=== PATIENT | male | born 1960 | race Caucasian/White ===

== ENCOUNTER 2016-05-16 20:27 | Observation (INO) | payer OTHER ==
[~2016-05-16 20:27] MED LIST: ALDA2525 PO; ALDA50TA PO; BACT800T5 PO; CIAL5TAB PO; CLIN150 PO; HUMI20KI SQ; LISI-363 PO; ROBA750T3 PO; TAMS.4 PO; TEST200I13 IM; ZOCO40TA PO
[2016-05-16 20:29] VITALS: BP 154/93; PULSE 68; RESP 16; TEMP 97.8; O2SAT 98
[2016-05-16] MEDS ORDERED: LISI-515 PO (20:43)
[2016-05-16] MEDS ORDERED: TEST-55 (20:43)
[2016-05-16] MEDS ORDERED: TAMS0.4C4 PO (20:43)
[2016-05-16] MEDS ORDERED: SIMV80TA PO (20:43)
[2016-05-16] MEDS ORDERED: ACYC400T PO (20:43)
[2016-05-16] MEDS ORDERED: IBUP-988 PO (20:43)
[2016-05-16] MEDS ORDERED: HUMI40KI SQ (20:43)
[2016-05-16] MEDS ORDERED: METH750T PO (20:43)
[2016-05-16] MEDS ORDERED: HYDR25TA5 PO (20:43)
[2016-05-16] MEDS ORDERED: SILD20TA11 PO (20:43)
[2016-05-16] MEDS ORDERED: BENA25CA4 (20:43)
[2016-05-16] MEDS ORDERED: SODIUM CHLORIDE 0.9% FLUSH 5 ML FLUSH IVF PRN ×2 (20:45→22:45)
--- NOTE | 2016-05-16 20:55 | PD ---
HPI Chief Complaint: Neuro Symptoms/ Deficits Time Seen by Provider: 20:36 Travel History International Travel<30 days: No Contact w/Intl Traveler<30days: No Traveled to known affect area: No History of Present Illness HPI Patient is a 55-year-old male with history of hypertension, hyperlipidemia, hypoglycemia who presents to emergency room for evaluation of possible CVA. Patient presents to emergency room with his , reports that patient was last seen normal around 4:15 PM today. Patient's reports that when she arrived home around 5:30 PM today, patient appeared very confused, reports that he was not sure where he was or who she was. did bring patient to [facility], reports that they did a workup and was told that patient had a stroke. Reports that he was be admitted to the hospital and have an MRI tomorrow, became concerned and wanted to have the MRI performed today so she reports that she walked out of the ER patient and brought him directly to [facility] for evaluation. Patient at this time is confused, he is alert to person and place. Patient's reports that patient has multiple hypoglycemic episodes, reports that she said patient prior to coming to the emergency room and after leaving the emergency room. Patient's blood sugar 140 in this emergency room. Patient reports that he feels confused, reports increased weakness to his left side. PFSH Past Medical History Arthritis: Yes (PSORIATIC ARTHRITIS) Autoimmune Disease: Yes (MEINERES DISEASE) High Cholesterol: Yes Diminished Hearing: No Genitourinary: Yes (BPH) Hypertension: Yes Thyroid Disease: Yes Triglycerides - High: Yes Tetanus Vaccination: Unknown Influenza Vaccination: No Past Surgical History Other Surgery: Yes (vasectomy) Social History Alcohol Use: No Tobacco Use: No Substance Use: No Allergies-Medications (Allergen,Severity, Reaction): Coded Allergies: Benzodiazepines (Verified Allergy, Severe, psycotic episodes, 05/16/16) Reported Meds & Prescriptions Reported Meds & Active Scripts Active Reported Benadryl Allergy (Diphenhydramine HCl) 25 Mg Cap Testosterone (Testosterone (Bulk)) 1 Pow Pow Humira 2-Pack Inj (Adalimumab 2-Pack Inj) 40 Mg/0.8 Ml Syr 40 Mg SQ Q14D Advil (Ibuprofen) 200 Mg Tab 800 Mg PO BID Tamsulosin (Tamsulosin HCl) 0.4 Mg Cap 0.4 Mg PO HS Methocarbamol 750 Mg Tab 750 Mg PO Q4H Sildenafil 20 Mg Tab 20 Mg PO TID Acyclovir 400 Mg Tab 400 Mg PO BID Lisinopril 20 Mg Tab 20 Mg PO DAILY Hydrochlorothiazide 25 Mg Tab 25 Mg PO BID Simvastatin 80 Mg Tab 80 Mg PO DAILY Review of Systems General / Constitutional: No: Fever Eyes: No: Visual changes HENT: No: Headaches Cardiovascular: No: Chest Pain or Discomfort Respiratory: No: Shortness of Breath Gastrointestinal: No: Abdominal Pain Genitourinary: No: Dysuria Musculoskeletal: No: Pain Skin: No Rash Neurologic: Positive: Weakness, Change in Mentation Psychiatric: No: Depression Endocrine: No: Polydipsia Hematologic/Lymphatic: No: Easy Bruising Physical Exam Narrative GENERAL: Moderate distress SKIN: Warm and dry. HEAD: Atraumatic. Normocephalic. EYES: Pupils equal and round. No scleral icterus. No injection or drainage. ENT: No nasal bleeding or discharge. Mucous membranes pink and moist. NECK: Trachea midline. No JVD. CARDIOVASCULAR: Regular rate and rhythm. No murmur appreciated. RESPIRATORY: No accessory muscle use. Clear to auscultation. Breath sounds equal bilaterally. GASTROINTESTINAL: Abdomen soft, non-tender, nondistended. Hepatic and splenic margins not palpable. MUSCULOSKELETAL: No obvious deformities. No clubbing. No cyanosis. No edema. NEUROLOGICAL: Awake and alert to person and place. Patient with left upper extremity and left lower extremity weakness, NIH scale 3 PSYCHIATRIC: Anxious mood and affect; Data Data Last Documented VS Vital Signs Date Time Temp Pulse Resp B/P Pulse Ox O2 Delivery O2 Flow Rate FiO2 05/16/16 21:51 16 98 Room Air 05/16/16 20:31 64 05/16/16 20:29 97.8 154/93 Orders Prothrombin Time / Inr (Pt) (05/16/16 20:36) Act Partial Throm Time (Ptt) (05/16/16 20:36) Complete Blood Count With Diff (05/16/16 20:36) Comprehensive Metabolic Panel (05/16/16 20:36) Creatine Kinase (Cpk) (05/16/16 20:36) Drug Screen, Random Urine (05/16/16 20:36) Troponin I (05/16/16 20:36) Urinalysis - C+S If Indicated (05/16/16 20:36) Ct Brain W/O Iv Contrast(Rout) (05/16/16 20:36) Chest, Single Ap (05/16/16 20:36) Ecg Monitoring (05/16/16 20:36) Iv Access Insert/Monitor (05/16/16 20:36) Oximetry (05/16/16 20:36) Blood Glucose (05/16/16 20:36) Sodium Chloride 0.9% Flush (Ns Flush) (05/16/16 20:45) Electrocardiogram (05/16/16 20:31) Aspirin (Aspirin) (05/16/16 22:15) Consult Neurology (05/16/16 ) Admit Order (Ed Use Only) (05/16/16 22:22) Labs Laboratory Tests Test 05/16/16 05/16/16 20:40 22:00 White Blood Count 8.4 TH/MM3 Red Blood Count 5.19 MIL/MM3 Hemoglobin 15.8 GM/DL Hematocrit 44.8 % Mean Corpuscular Volume 86.4 FL Mean Corpuscular Hemoglobin 30.4 PG Mean Corpuscular Hemoglobin 35.2 % Concent Red Cell Distribution Width 13.6 % Platelet Count 241 TH/MM3 Mean Platelet Volume 7.6 FL Neutrophils (%) (Auto) 70.9 % Lymphocytes (%) (Auto) 21.6 % Monocytes (%) (Auto) 5.2 % Eosinophils (%) (Auto) 1.9 % Basophils (%) (Auto) 0.4 % Neutrophils # (Auto) 5.9 TH/MM3 Lymphocytes # (Auto) 1.8 TH/MM3 Monocytes # (Auto) 0.4 TH/MM3 Eosinophils # (Auto) 0.2 TH/MM3 Basophils # (Auto) 0.0 TH/MM3 CBC Comment DIFF FINAL Differential Comment Prothrombin Time 11.1 SEC Prothromb Time International 1.0 RATIO Ratio Activated Partial 24.0 SEC Thromboplast Time Sodium Level 141 MEQ/L Potassium Level 3.5 MEQ/L Chloride Level 105 MEQ/L Carbon Dioxide Level 27.0 MEQ/L Anion Gap 9 MEQ/L Blood Urea Nitrogen 25 MG/DL Creatinine 1.24 MG/DL Estimat Glomerular Filtration 61 ML/MIN Rate Random Glucose 153 MG/DL Calcium Level 8.6 MG/DL Total Bilirubin 0.9 MG/DL Aspartate Amino Transf 23 U/L (AST/SGOT) Alanine Aminotransferase 60 U/L (ALT/SGPT) Alkaline Phosphatase 55 U/L Total Creatine Kinase 177 U/L Troponin I LESS THAN 0.02 NG/ML Total Protein 7.0 GM/DL Albumin 4.2 GM/DL Urine Color YELLOW Urine Turbidity CLEAR Urine pH 7.0 Urine Specific [place] 1.022 Urine Protein TRACE mg/dL Urine Glucose (UA) NEG mg/dL Urine Ketones TRACE mg/dL Urine Occult Blood NEG Urine Nitrite NEG Urine Bilirubin NEG Urine Urobilinogen LESS THAN 2.0 MG/DL Urine Leukocyte Esterase NEG Urine RBC 1 /hpf Urine WBC LESS THAN 1 /hpf Urine Mucus FEW /lpf Microscopic Urinalysis Comment CATH-CULT NOT IND MDM Medical Decision Making Medical Screen Exam Complete: Yes Emergency Medical Condition: Yes Interpretation(s) EKG at 2030: Normal sinus rhythm at 60 bpm, QT/QTc 411/428 Vital Signs Date Time Temp Pulse Resp B/P Pulse Ox O2 Delivery O2 Flow Rate FiO2 05/16/16 20:31 64 16 98 Room Air 05/16/16 20:29 97.8 68 16 154/93 98 Differential Diagnosis Intracranial hemorrhage, CVA, TIA, electrolyte abnormality, arrhythmia Narrative Course Patient is a 55-year-old male who presents to emergency room for evaluation of stroke. He was last seen normal around 4:15 PM by his daughter, reports that when she arrived home today around 5:30 PM, patient was appearing very altered and confused. Patient was seen at [facility] and was supposed to be admitted for CVA, patient's took him out of the emergency room and left AMA and is here for evaluation. NIH scale is 3 at this time. I have requested lab work and CAT scans as well as ER records from outside hospital. Blood sugar 140 in the emergency room. Labs as well as CAT scan of head and EKG ordered. Plan to talk to neurology once I obtain more information I reviewed all labs and all studies with patient in detail. As per patient and , patient did not receive aspirin today. Patient does have rapidly resolving symptoms at this time, and scale is 0. Plan to admit to medicine service for TIA Call made to Dr. Bowens, with neurology, does not recommend further imaging at this time as NIH scale [address] Crow who accepts pt to service Diagnosis Primary Impression: TIA (transient ischemic attack) Qualified Code: G45.9 - Transient cerebral ischemia, unspecified type Admitting Information Admitting Physician Requests: Observation Anay Kaufman DO May 16, 2016 20:55
[2016-05-16 20:58] LABS: AUTOMATED NEUTROPHIL # 5.9 TH/MM3 (1.8-7.7); BASOPHIL % 0.4 % (0.0-2.0); EOSINOPHIL # 0.2 TH/MM3 (0-0.4); EOSINOPHIL % 1.9 % (0.0-4.0); HEMATOCRIT 44.8 % (39.0-51.0); HEMO FLAGS DIFF FINAL; LYMPH % 21.6 % (9.0-44.0); LYMPHOCYTE # 1.8 TH/MM3 (1.0-4.8); MEAN CELL VOLUME 86.4 FL (80.0-100.0); MEAN CORPUSCULAR HEMOGLOBIN 30.4 PG (27.0-34.0); MEAN CORPUSCULAR HGB CONC 35.2 % (32.0-36.0); MONO % 5.2 % (0.0-8.0); NEUT % 70.9 % (16.0-70.0); PLATELET COUNT 241 TH/MM3 (150-450); RED BLOOD COUNT 5.19 MIL/MM3 (4.50-5.90); RED CELL DISTRIBUTION WIDTH 13.6 % (11.6-17.2); WHITE BLOOD COUNT 8.4 TH/MM3 (4.0-11.0)
--- NOTE | 2016-05-16 20:59 | RADRPT ---
EXAM DATE/TIME: 05/16/2016 20:49 [facility] COMPARISON: No previous studies available for comparison. INDICATIONS : Syncopal episode today. MEDICAL HISTORY : Hypertension. SURGICAL HISTORY : None. ENCOUNTER: Initial ACUITY: 1 day PAIN SCORE: 0/10 LOCATION: Bilateral chest FINDINGS: A single view of the chest demonstrates the lungs to be symmetrically aerated without evidence of mas s, infiltrate or effusion. The cardiomediastinal contours are unremarkable. Osseous structures are intact. CONCLUSION: No evidence of acute cardiopulmonary disease. Chencho Baez MD on May 16, 2016 at 20:58 Board Certified Radiologist. This report was verified electronically.
[2016-05-16 21:10] LABS: PROTHROMBIN TIME - PATIENT 11.1 SEC (9.8-11.6)
[2016-05-16 21:21] LABS: ANION GAP 9 MEQ/L (5-15); AST (GOT) 23 U/L (15-37); BLOOD UREA NITROGEN 25 MG/DL (7-18); CHLORIDE 105 MEQ/L (98-107); GLOMERULAR FILTRATION RATE 61 ML/MIN (>89); POTASSIUM 3.5 MEQ/L (3.5-5.1); SODIUM (NA) 141 MEQ/L (136-145)
[2016-05-16 21:26] LABS: ALKALINE PHOSPHATASE 55 U/L (45-117); ALT (GPT) 60 U/L (12-78); CREATINE KINASE 177 U/L (39-308); TOTAL BILIRUBIN ADULT 0.9 MG/DL (0.2-1.0)
[2016-05-16 21:51] VITALS: RESP 16; O2SAT 98
--- NOTE | 2016-05-16 21:56 | RADRPT ---
EXAM DATE/TIME: 05/16/2016 20:52 [facility] COMPARISON: No previous studies available for comparison. INDICATIONS : Altered mental status; possible CVA RADIATION DOSE: 44.94 CTDIvol (mGy) MEDICAL HISTORY : Hypertension. Meniere's disease. SURGICAL HISTORY : None. ENCOUNTER: Initial ACUITY: 1 day PAIN SCALE: 0/10 LOCATION: cranial TECHNIQUE: Multiple contiguous axial images were obtained of the head. Using automated exposure control and adj ustment of the mA and/or kV according to patient size, radiation dose was kept as low as reasonably a chievable to obtain optimal diagnostic quality images. FINDINGS: CEREBRUM: The ventricles are normal for age. No evidence of midline shift, mass lesion, hemorrhage or acute in farction. No extra-axial fluid collections are seen. POSTERIOR FOSSA: The cerebellum and brainstem are intact. The 4th ventricle is midline. The cerebellopontine angle i s unremarkable. EXTRACRANIAL: The visualized portion of the orbits is intact. SKULL: The calvaria is intact. No evidence of skull fracture. CONCLUSION: Negative noncontrast head CT. Chencho Baez MD on May 16, 2016 at 21:54 Board Certified Radiologist. This report was verified electronically.
[2016-05-16 22:13] LABS: BLOOD, URINE NEG (NEG); GLUCOSE,URINE NEG (NEG); KETONE, URINE TRACE mg/dL (NEG); MUCUS URINE FEW /lpf (OCC); NITRITE,URINE NEG (NEG); URINE COLOR YELLOW (YELLW/STRAW)
[2016-05-16 22:14] LABS: COMMENT (UR) CATH-CULT NOT IND; CULTURE IF INDICATED CATH CULTURE NOT IND
[2016-05-16] MEDS ORDERED: ASPIRIN 325 MG TAB PO ONE (22:15)
[2016-05-16 22:17] LABS: AMPHETAMINE, URINE NEG (NEG); BARBITURATES, URINE NEG (NEG); COCAINE, URINE NEG (NEG)
[2016-05-17] VITALS (7 sets, daily range): BP systolic 119–148; BP diastolic 66–86; PULSE 54–68; RESP 16–20; TEMP 97.4–98.6; O2SAT 95–99
--- NOTE | 2016-05-17 01:37 | RADRPT ---
EXAM DATE/TIME: 05/17/2016 00:45 [facility] COMPARISON: No previous studies available for comparison. INDICATIONS : Cerebrovascular accident. MEDICAL HISTORY : Hypercholesterolemia. Hypertension. Benign prostatic hyperplasia, (BPH) Meniere's disease. psoriatic arthritis. SURGICAL HISTORY : Vasectomy. Cervical neck surgery. ENCOUNTER: Initial ACUITY: 1 day PAIN SCORE: 0/10 LOCATION: Bilateral neck PEAK SYSTOLIC VELOCITIES (cm/sec): ICA/CCA RATIO: Right: 1.0 Left: 0.8 ICA: Right: 91 Left: 76 CCA: Right: 90 Left: 92 ECA: Right: 73 Left: 88 VERTEBRAL: Right: 41 antegrade Left: 40 antegrade Elevated flow velocities and ICA/CCA ratios have been found to correlate with increased degrees of vessel stenosis, calculated as percentage of diameter relative to a normal segment of distal ICA/CCA FINDINGS: RIGHT CAROTID: No significant stenosis is visualized. The waveforms are within normal limits. LEFT CAROTID: No significant stenosis is visualized. The waveforms are within normal limits. VERTEBRAL ARTERIES: Antegrade flow is seen in both vertebral arteries. MISCELLANEOUS: None. CONCLUSION: Negative exam. No significant atherosclerotic disease. No sonographic or Doppler findings of a h emodynamically significant stenosis. Norris Bliss MD on May 17, 2016 at 1:35 Board Certified Radiologist. This report was verified electronically.
[2016-05-17] MEDS ORDERED: ACETAMIN 325 MG/BUTALBITAL 50 MG/CAFFEINE 40 MG TAB PO ONE (05:00)
[2016-05-17 06:51] LABS: HDL CHOLESTEROL 33.9 MG/DL (40.0-60.0)
--- NOTE | 2016-05-17 09:08 | HHI.HP ---
HPI Service [facility] Hospitalists Primary Care Physician Dr. Emmett Patrick Admission Diagnosis Memory loss Chief Complaint: Memory loss, left sided weakness Travel History International Travel<30 Days: No Contact w/Intl Traveler <30 Da: No Traveled to Known Affected Are: No History of Present Illness Mr. Jackson is a pleasant 55 y/o WM with HTN, Hypothyroidism, Psoriasis/ psoriatic arthritis and recently diagnosed with cluster headaches and started on Verapamil two days ago. Pt presented to the ED at [facility] on 05/16/16 with reported memory loss, confusion and left sided weakness. Pts reports that she and the pt had a fight yesterday morning and hadn't seen each other for most of the day. She states that text messages she received from him were normal up until around 1400. Then her daughter saw the pt around 1615 yesterday and he wasn't acting like his normal self. Patient's reports that when she arrived home around 1730 and the patient appeared very confused, reports that he was not sure where he was or who she was and had some issues with word finding. She brought the patient to [facility], and that they offered her TPA but he did not receive it. The pt was reportedly to be admitted to the hospital and have an MRI the following day but his became concerned and wanted to have the MRI performed yesterday so she walked out of the ED and brought him directly to [facility] for evaluation. At the time of his evaluation in the ED here at [facility] he was still confused, but alert to person and place. He had a Head CT which was negative. Carotid US was also negative. Pts reports that the confusion and memory recall is better today but he still has some difficulty with recalling information about himself or his medical history. His reports that patient has had in the past multiple hypoglycemic episodes, although she does not ever check his blood sugar with these episodes, she bases this on his symptoms. Patient's blood sugar was 140 in the ED and was 100 this morning. Pt feels that his left sided weakness is improving. Pt recently established with a Dr. Ashley, a neurologist in [place], for evaluation of severe right sided headaches which he described as a burning, boring pain in his right eye with associated blurred vision. This has been going on the last 6 months. These episodes would last for 3-5 minutes and then resolve. He had a previous outpt MRI and MRA in 11/2015 which noted no evidence of acute infarction but noted mild punctate foci of high signal seen within the brain parenchyma. His MRA was negative. Review of Systems Constitutional: DENIES: Diaphoretic episodes, Dizziness Eyes: COMPLAINS OF: Blurred vision Ears, nose, mouth, throat: DENIES: Hearing loss Cardiovascular: DENIES: Chest pain, Palpitations, Lower Extremity Edema Gastrointestinal: DENIES: Abdominal pain, Nausea, Vomiting Genitourinary: DENIES: Hematuria, Dysuria Musculoskeletal: COMPLAINS OF: Back pain (chronic) Integumentary: DENIES: Rash Neurologic: COMPLAINS OF: Localized weakness, Speech Problems, DENIES: Headache Psychiatric: COMPLAINS OF: Confusion Past Family Social History Past Medical History HTN Hyperlipidemia Hypothyroidism Arthritis BPH Psoriasis/psoriatic arthritis Chronic back pain Fibromyalgia Recently diagnosed with cluster headaches Hypoglycemia Past Surgical History Right Achilles tendon surgery Cervical fusion 05/2013 TURP 05/2015 Tonsillectomy Vasectomy Reported Medications Benadryl Allergy (Diphenhydramine HCl) 25 Mg Cap Testosterone (Testosterone (Bulk)) 1 Pow Pow Advil (Ibuprofen) 200 Mg Tab 800 Mg PO BID Tamsulosin (Tamsulosin HCl) 0.4 Mg Cap 0.4 Mg PO HS Methocarbamol 750 Mg Tab 1,500 Mg PO HS Sildenafil 20 Mg Tab 40 Mg PO DAILY PRN Acyclovir 400 Mg Tab 400 Mg PO BID PRN Lisinopril 20 Mg Tab 20 Mg PO DAILY Hydrochlorothiazide 25 Mg Tab 50 Mg PO DAILY Simvastatin 80 Mg Tab 80 Mg PO DAILY Allergies: Coded Allergies: Benzodiazepines (Verified Allergy, Severe, psycotic episodes, 05/16/16) Family History Mother with hx of CVA Social History Denies any alcohol or tobacco use Marijuana use, last few months at night. 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 HEENT: Atraumatic. Normocephalic. No temporal or scalp tenderness. No scleral icterus. Airway patent. NECK: Trachea midline, supple, nontender. CARDIO: Regular. RESP: CTA bilaterally. No wheezes, rales, or rhonchi. ABD: +BS, soft, non-tender, nondistended. EXT: Extremities without clubbing, cyanosis, or edema. NEURO: Awake and alert. Cranial nerves II through XII intact. Motor and sensory grossly within normal limits. Normal speech. Decreased public service officer strength in the left hand and decreased strength in the LUE and LLE compared to right. Pt is left handed. Laboratory Laboratory Tests Test 05/16/16 05/16/16 05/17/16 20:40 22:00 05:28 White Blood Count 8.4 Red Blood Count 5.19 Hemoglobin 15.8 Hematocrit 44.8 Mean Corpuscular Volume 86.4 Mean Corpuscular Hemoglobin 30.4 Mean Corpuscular Hemoglobin 35.2 Concent Red Cell Distribution Width 13.6 Platelet Count 241 Mean Platelet Volume 7.6 Neutrophils (%) (Auto) 70.9 Lymphocytes (%) (Auto) 21.6 Monocytes (%) (Auto) 5.2 Eosinophils (%) (Auto) 1.9 Basophils (%) (Auto) 0.4 Neutrophils # (Auto) 5.9 Lymphocytes # (Auto) 1.8 Monocytes # (Auto) 0.4 Eosinophils # (Auto) 0.2 Basophils # (Auto) 0.0 CBC Comment DIFF FINAL Differential Comment Prothrombin Time 11.1 Prothromb Time International 1.0 Ratio Activated Partial 24.0 Thromboplast Time Sodium Level 141 Potassium Level 3.5 Chloride Level 105 Carbon Dioxide Level 27.0 Anion Gap 9 Blood Urea Nitrogen 25 Creatinine 1.24 Estimat Glomerular Filtration 61 Rate Random Glucose 153 Calcium Level 8.6 Total Bilirubin 0.9 Aspartate Amino Transf 23 (AST/SGOT) Alanine Aminotransferase 60 (ALT/SGPT) Alkaline Phosphatase 55 Total Creatine Kinase 177 Troponin I LESS THAN 0.02 Total Protein 7.0 Albumin 4.2 Urine Color YELLOW Urine Turbidity CLEAR Urine pH 7.0 Urine Specific [place] 1.022 Urine Protein TRACE Urine Glucose (UA) NEG Urine Ketones TRACE Urine Occult Blood NEG Urine Nitrite NEG Urine Bilirubin NEG Urine Urobilinogen LESS THAN 2.0 Urine Leukocyte Esterase NEG Urine RBC 1 Urine WBC LESS THAN 1 Urine Mucus FEW Microscopic Urinalysis Comment CATH-CULT NOT IND Urine Opiates Screen POS Urine Barbiturates Screen NEG Urine Amphetamines Screen NEG Urine Benzodiazepines Screen NEG Urine Cocaine Screen NEG Urine Cannabinoids Screen POS Triglycerides Level 159 Cholesterol Level 124 LDL Cholesterol 58 HDL Cholesterol 33.9 Cholesterol/HDL Ratio 3.65 Result Diagram: 05/16/16203905/16/162039 Imaging Last Impressions Carotid Artery Ultrasound 05/17/16 0000 Signed Impressions: Service Date/Time: Tuesday, May 17, 2016 00:45 - CONCLUSION: Negative exam. No significant atherosclerotic disease. No sonographic or Doppler findings of a hemodynamically significant stenosis. Norris Bliss MD Head CT 05/16/162035 Signed Impressions: Service Date/Time: Monday, May 16, 2016 20:52 - CONCLUSION: Negative noncontrast head CT. Chencho Baez MD Chest X-Ray 05/16/162035 Signed Impressions: Service Date/Time: Monday, May 16, 2016 20:49 - CONCLUSION: No evidence of acute cardiopulmonary disease. Chencho Baez MD Septic Shock Reassessment Heart: Regular rate and rhythm Lungs: Clear Skin: Warm Peripheral Pulses: Bounding Right Radial Bounding Left Radial Bounding Right Popliteal Bounding Left Popliteal Bounding Right Dorsalis Pedis Bounding Left Dorsalis Pedis Bounding Right Posterior Tibial Bounding Left Posterior Tibial Capillary Refill: <2 seconds Assessment and Plan Problem List: (1) Memory loss or impairment Status: Acute Plan: - Pt admitted with new onset of confusion, memory loss, difficulty with word findings and left sided weakness that began on 05/16/16. Etiology unclear, pt has had some symptomatic improvement today with regards to his memory issues and left sided weakness. - Pt had presented to [place] on 05/16/16 and had a reportedly negative CT brain. - Pts brought him to [facility] on 05/16/16 for further workup. - Head CT was negative for acute changes - Carotid US - negative. - MRI/MRA is pending. - Telemetry - BP has been stable off home meds - He was recently started on Verapamil 2 days ago for cluster headaches. No complaints of headaches. - Pt was given ASA 325mg last night and this morning. - 2D echo is ordered - Await MRI results and make further recommendations based on that. - DVT prophylaxis with SCDs (2) Confusion Status: Acute Plan: - See above. (3) Left-sided weakness Status: Acute Plan: - See above. (4) HTN (hypertension) Status: Chronic Plan: - Pt is on Lisinopril 20mg po daily and HCTZ 50mg po daily - He was started on Verapamil 2 days ago for cluster headaches. - Resume Lisinopril, monitor (5) Hypothyroidism Status: Chronic Plan: - Pt has been off his Levothyroxine for the last few days as he ran out of medications. - Resume Levothyroxine 200mcg daily - Check TSh/free T4 (6) Psoriasis Status: Chronic Plan: - Pt reports hx of psoriasis and psoriatic arthritis. - He had been on Humira previously but stopped taking this around 4-5 months ago. (7) Chronic back pain Status: Chronic Plan: - Pt takes Methocarbamol 1500mg po HS and Advil 800mg at least twice daily - Pt also has been smoking marijuana at night to help with his chronic back pain. Assessment and Plan Patient examined. Assessment and plan formulated with Anay Gama PA-C. I agree with the above. amnestic event. not clearly a tia and no cva on imaging. pt was just dx with cluster h/a's. ?migraine event. eeg pending. tele sinus. no further w/up. check with neuro on any d/c meds. d/c Anay Gama May 17, 2016 09:08 [place] Daily MD May 17, 2016 16:33
[2016-05-17] MEDS ORDERED: SIMV80TA PO (09:30)
[2016-05-17] MEDS ORDERED: LEVO200T4 PO (09:54)
[2016-05-17] MEDS: SODIUM CHLORIDE 0.9% FLUSH 5 ML FLUSH IVF SCH ×2 (10:08→22:48)
[2016-05-17] MEDS: ASPIRIN 325 MG TAB PO SCH (10:08)
[2016-05-17 11:26] LABS: FREE T4 0.86 NG/DL (0.76-1.46)
--- NOTE | 2016-05-17 14:15 | MB ---
cc: ALICE VAZQUEZ M.D. DATE OF CONSULTATION: 05/17/2016 DATE OF : 1960 REASON FOR CONSULTATION Possible TIA. HISTORY OF PRESENT ILLNESS The patient is a 55-year-old man with history of hypothyroidism, hypertension, psoriatic arthritis, psoriasis, chronic low back pain, right meniscus issues, recent diagnosis of possible cluster headaches started on verapamil a few days ago. He and his were at home yesterday, they both went out and went their separate ways to do errands. He apparently came home at a certain time and then she came home later and found him in the bedroom confused, crying, recognized her but did not know her name, did not know where he was living. She does not know when that may have started but they apparently went to [facility] in [place]. So I am told radiology saw them, they spoke about TPA but they did not receive for what apparent reason, possible time of onset was unknown. They were not going to do any other tests she states, so she decided to put him in the car and bring him here directly. He has been here now since last night and he still has some confusion but he knows who he is, he recognizes his , he is more oriented but has lack of remembrance to what happened yesterday. He did check his blood sugar, it was 140 in the ED and 100 this morning. He had some left-sided issues but that seems to have resolved. He sees Dr. Ashley in [place], his neurologist. His states for the last 6 months or so he has had episodic events with memory. PAST MEDICAL HISTORY There is a past medical history as stated. MEDICATION Home medicines: 1. Benadryl. 2. Testosterone. 3. Advil. 4. Tamsulosin. 5. Robaxin. 6. Viagra p.r.n. 7. Acyclovir. 8. Lisinopril. 9. Hydrochlorothiazide. 10. Simvastatin. 11. He is also on oxycodone 10 mg four times a day for his low back pain. He states that he is pending possible lumbar surgery. ALLERGIES BENZODIAZEPINES. FAMILY HISTORY Stroke in the mother, father had dementia towards the end, a year ago. SOCIAL HISTORY Does not use alcohol or tobacco, had marijuana a few months ago. 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 He works at [employer] since November of 2015. He is . There are mixed family with six children between them. PHYSICAL EXAMINATION VITAL SIGNS: Temperature is 97.4, pulse 54, respiratory rate 20, blood pressure 139/82. His blood pressure has been fairly stable since admission. NECK: Neck is supple. No bruits. HEART: Regular. NEURO: He is awake, alert. He is oriented. He knows he is in the hospital. He cannot tell me the name of the hospital. He knows his address, he knows his date of , age, he recognizes his . He was able to tell me it is May 17 but he thought it was Sunday. He knew the year. He now knows the president, does not know the governor of [place] nor the vice-academic vice president. Speech is fluent. Pupils reactive. Visual luo full. Face symmetrical. Tongue midline. No ptosis. No injected sclerae. No temporal artery tenderness. Motor: He has a minimally decreased child life assistant on the left compared to the right. Cerebellar testing is normal. No past-pointing. No significant leg lag. Toes are downgoing. Reflexes are 2+. Sensory normal. Gait is withheld. LABORATORY DATA Labs are reviewed. CBC is unremarkable. Chemistries, cholesterol 124, triglycerides 159, LDL 58, HDL 33.9, TSH and T4 were normal. Glucose 153, GFR 61, BUN 25. Toxicology positive for cannabinoids and opiates. Urine unremarkable. IMAGING STUDIES Carotid ultrasound was unremarkable for any carotid disease. IMPRESSION A 55-year-old man with what sounds like a possible transient and global amnestic episode/possible TIA. Recommend getting an MRI, MRA completed, get a 2-D echo, put him on full dose aspirin, DVT prophylaxis with Lovenox and SCDs. I would put him back on his pain medicine for his lumbar pain, since he is in a hospital bed his pain is exacerbated. Out of bed with physical therapy and I will also add an EEG. Depending on findings, further recommendations accordingly. MD JAUN Valadez/MANOHAR /1:19 PM /1:41 PM
--- NOTE | 2016-05-17 15:30 | RADRPT ---
EXAM DATE/TIME: 05/17/2016 10:45 [facility] COMPARISON: CT BRAIN W/O CONTRAST, May 16, 2016, 20:52. INDICATIONS : CVA. Unsteady gait. MEDICAL HISTORY : Hypertension. Meniere's disease. SURGICAL HISTORY : Fusion, cervical. Prostatectomy. Achilles tendon. ENCOUNTER: Subsequent ACUITY: 2 day PAIN SCORE: 0/10 LOCATION: head. TECHNIQUE: Multiplanar, multisequence MRI of the brain was performed without contrast. FINDINGS: CEREBRUM: The ventricles are normal for age. No evidence of midline shift, mass lesion, hemorrhage or acute in farction. No extraaxial fluid collections are seen. The pituitary gland and suprasellar cistern are normal in configuration. WHITE MATTER: No significant signal abnormalities are seen in the white matter. POSTERIOR FOSSA: The cerebellum and brainstem demonstrate no abnormality. The 4th ventricle is midline. The cerebello pontine angle is unremarkable. The cerebellar tonsils are normal in position. DIFFUSION IMAGING: No focal areas of restricted diffusion are seen. No evidence of acute infarction. EXTRACRANIAL: The visualized portions of the orbits and paranasal sinuses are unremarkable. CONCLUSION: Negative brain MRI. No abnormality is identified to explain the clinical symptoms and there are no fi ndings to indicate recent ischemia. Chencho Black MD on May 17, 2016 at 15:26 Board Certified Radiologist. This report was verified electronically.
--- NOTE | 2016-05-17 15:34 | RADRPT ---
EXAM DATE/TIME: 05/17/2016 10:45 [facility] COMPARISON: No previous studies available for comparison. INDICATIONS : CVA. Unsteady gait. MEDICAL HISTORY : Hypertension. SURGICAL HISTORY : Fusion, cervical. Prostatectomy. Achilles tendon repair. ENCOUNTER: Subsequent ACUITY: 2 day PAIN SCORE: 0/10 LOCATION: head. Please note a normal MRA of the brain does not entirely exclude the possibility of a small aneurysm, nor the possibility of distal intracranial vessel disease. TECHNIQUE: 3D time of flight MRA was performed. Source images, multiplanar STS MIP, and 3D volume MIP reconstru ctions were reviewed. FINDINGS: Anterior circulation: The internal carotid arteries demonstrate no abnormality or atherosclerotic change. A1 segments and m ore distal anterior cerebral arteries are symmetric and within normal limits. The middle cerebral art mook branches demonstrate symmetric flow related enhancement. No aneurysm or high-grade stenosis is id entified. Posterior circulation: There is persistent circulation on the left. The left vertebral artery appears to terminate int o the PICA. Right vertebral artery demonstrates no abnormality. The basilar artery and posterior cere bral arteries demonstrate no significant stenosis or abnormality. No aneurysm is visualized. CONCLUSION: No acute intracranial vascular abnormality is identified. Chencho Black MD on May 17, 2016 at 15:28 Board Certified Radiologist. This report was verified electronically.
[2016-05-17] MEDS: ACETAMINOPHEN/HYDROcodone 325 MG/5 MG TAB PO PRN (16:00)
[2016-05-17] MEDS ORDERED: OXYC-395 PO (16:06)
--- NOTE | 2016-05-17 17:34 | EC ---
Study Study Date:05/17/2016 STUDY CONCLUSIONS SUMMARY - Procedure narrative: Image quality was poor. The study was technically limited due to poor acoustic window availability. - Left ventricle: The cavity size was normal. Systolic function was probably normal. The estimated ejection fraction was in the range of 55% to 60%. The study is not technically sufficient to allow evaluation of LV diastolic function. If LV function is below 40, please consider prescribing an ACEI or ARB or document rationale for non-use. PROCEDURE DATA STUDY STATUS: Elective. Procedure: Transthoracic echocardiography. Image quality was poor. The study was technically limited due to poor acoustic window availability. Scanning was performed from the parasternal, apical, and subcostal acoustic windows. Study completion: The patient tolerated the procedure well. Transthoracic echocardiography. M-mode, complete 2D, complete spectral Doppler, and color Doppler. Height: Height: 77in. Weight: Weight: 263.5lb. Body mass index: BMI: 31.3kg/m^2. Body surface area: BSA: 2.52m^2. Patient status: Inpatient. CARDIAC ANATOMY LEFT VENTRICLE: The cavity size was normal. Systolic function was probably normal. The estimated ejection fraction was in the range of 55% to 60%. Images were inadequate for LV wall motion assessment. The study is not technically sufficient to allow evaluation of LV diastolic function. AORTIC VALVE: Poorly visualized. Doppler: There was no stenosis. No significant regurgitation. Valve area: 2.11cm^2 (Vmax). Indexed valve area: 0.84cm^2/m^2 (Vmax). MITRAL VALVE: Not well visualized. Doppler: There was no evidence for stenosis. No significant regurgitation. LEFT ATRIUM: The atrium was at the upper limits of normal in size. RIGHT VENTRICLE: Not well visualized. PULMONIC VALVE: Not well visualized. TRICUSPID VALVE: Poorly visualized. Doppler: There was no evidence for stenosis. Trace regurgitation. Patient weight: 263.5lb _Ejection fraction:_ 65-75% _Fractional shortening:_ 32% up to 5Kg 5-11.5Kg 11.6-22.9Kg 23-45Kg 45-57Kg Aortic Root 7-13 <17 13-22 17-27 17-27 LA diam 6-13 <23 24-38 33-47 37-40 RVID 10-17 7-15 7-15 7-18 8-17 LVIDd 12-22 <32 24-38 33-47 37-40 LVPW 2-4 3-6 5-7 6-8 7-8 IVS 2-4 3-6 5-7 6-8 7-8 BASIC MEASUREMENTS ADULT NORMAL Left ventricle LV internal dimension, ED, chordal *40.9 mm 43-52 level, PLAX LV internal dimension, ES, chordal 27.6 mm 23-38 level, PLAX Fractional shortening, chordal level, 33 % >29 PLAX LV posterior wall thickness, ED 9.39 mm IVS/LVPW ratio, ED 0.91 <1.3 Ventricular septum Septal thickness, ED 8.53 mm Aortic valve Leaflet separation 20 mm 15-26 BASIC MEASUREMENTS ADULT NORMAL Aortic valve Leaflet separation 20 mm 15-26 Aorta Root diameter, ED 26 mm 20-37 Left atrium Anterior-posterior dimension, ES 39 mm 19-40 Anterior-posterior dimension index, ES 1.55 cm/m^2 <2.2 LA/aortic root ratio 1.5 DOPPLER MEASUREMENTS ADULT NORMAL Main pulmonary artery Pressure, S 16 mm Hg =30 Aortic valve Peak velocity, S 124 cm/s Valve area, Vmax 2.11 cm^2 Valve area index, Vmax 0.84 cm^2/m^2 Tricuspid valve Regurgitant peak velocity 194 cm/s Peak RV-RA gradient, S 15 mm Hg Maximal regurgitant velocity 194 cm/s Systemic veins Estimated CVP 10 mm Hg Right ventricle RV pressure, S 25 mm Hg <30 Pulmonic valve Peak velocity, S 153 cm/s LEGEND: Mean values are shown as u=mean value. Asterisk (*) velarde values outside specified normal range. Prepared and signed by Lucien Morrison [id number]
--- NOTE | 2016-05-17 18:38 | EKG ---
Date Performed: 05/16/2016 Time Performed: 20:31:43 PTAGE: 55 years EKG: Sinus rhythm NORMAL ECG NO PREVIOUS TRACING DOCTOR: Hermilo Gupta Interpretating Date/Time 05/17/2016 18:36:05
--- NOTE | 2016-05-17 19:21 | MG ---
cc: ROBB FRITZ M.D. Sex: M DATE: 05/17/2016 An EEG today was obtained on this 55-year-old patient being evaluated for possible stroke. DESCRIPTION: This EEG shows mid amplitude 10-12 per second rhythms, at the central and posterior head regions predominantly. The alpha background is reactive. There is low amplitude beta activity centrally and frontally. There is some drowsiness. The drowsiness is rare. Hyperventilation was not performed. Photic stimulation was unremarkable. INTERPRETATION Normal predominantly awake EEG. Robb Fritz MD [facility] /6:27 PM /7:09 PM
[2016-05-17] MEDS ORDERED: TAMSULOSIN HCL 0.4 MG CAP PO SCH (21:00)
[2016-05-18 00:14] VITALS: BP 102/58; PULSE 80; RESP 20; TEMP 97.5; O2SAT 95
[2016-05-18 03:43] VITALS: BP 114/73; PULSE 50; RESP 20; TEMP 97.9; O2SAT 95
[2016-05-18] MEDS ORDERED: LEVOTHYROXINE SODIUM 200 MCG TAB PO SCH (06:00)
[2016-05-18 08:00] VITALS: PULSE 45
[2016-05-18 08:08] VITALS: BP 117/75; PULSE 50; RESP 18; TEMP 96.7; O2SAT 95
[2016-05-18] MEDS: SODIUM CHLORIDE 0.9% FLUSH 5 ML FLUSH IVF SCH (08:18)
[2016-05-18] MEDS: ASPIRIN 325 MG TAB PO SCH (08:18)
[2016-05-18] MEDS: ACETAMINOPHEN/HYDROcodone 325 MG/5 MG TAB PO PRN (08:19)
[2016-05-18] MEDS ORDERED: PRAVASTATIN SOD 80 MG TAB PO SCH (09:00)
[2016-05-18] MEDS ORDERED: LISINOPRIL 20 MG TAB PO SCH (09:00)
--- NOTE | 2016-05-18 09:08 | HHI.PR ---
Subjective Remarks Patient is overall feeling better today He feels that his memory is improving. states that he could not tell her while looking at a picture of a bagel that it was called a bagel. Pt denies any headache today. Objective Vitals Vital Signs Date Time Temp Pulse Resp B/P Pulse Ox O2 Delivery O2 Flow Rate FiO2 05/18/16 08:08 96.7 50 18 117/75 95 05/18/16 03:43 97.9 50 20 114/73 95 05/18/16 00:14 97.5 80 20 102/58 95 05/17/16 21:08 60 05/17/16 19:45 97.6 63 20 126/81 96 05/17/16 18:24 98.0 62 19 127/66 96 05/17/16 12:02 97.4 54 139/82 96 05/17/16 05/17/16 05/18/16 15:00 23:00 07:00 Output Total 200 ml 200 ml Balance -200 ml -200 ml Output Urine Total 200 ml 200 ml Result Diagram: 05/16/16203905/16/162039 Other Results Laboratory Tests Test 05/16/16 05/16/16 05/17/16 20:40 22:00 05:28 White Blood Count 8.4 TH/MM3 Red Blood Count 5.19 MIL/MM3 Hemoglobin 15.8 GM/DL Hematocrit 44.8 % Mean Corpuscular Volume 86.4 FL Mean Corpuscular Hemoglobin 30.4 PG Mean Corpuscular Hemoglobin 35.2 % Concent Red Cell Distribution Width 13.6 % Platelet Count 241 TH/MM3 Mean Platelet Volume 7.6 FL Neutrophils (%) (Auto) 70.9 % Lymphocytes (%) (Auto) 21.6 % Monocytes (%) (Auto) 5.2 % Eosinophils (%) (Auto) 1.9 % Basophils (%) (Auto) 0.4 % Neutrophils # (Auto) 5.9 TH/MM3 Lymphocytes # (Auto) 1.8 TH/MM3 Monocytes # (Auto) 0.4 TH/MM3 Eosinophils # (Auto) 0.2 TH/MM3 Basophils # (Auto) 0.0 TH/MM3 CBC Comment DIFF FINAL Differential Comment Prothrombin Time 11.1 SEC Prothromb Time International 1.0 RATIO Ratio Activated Partial 24.0 SEC Thromboplast Time Sodium Level 141 MEQ/L Potassium Level 3.5 MEQ/L Chloride Level 105 MEQ/L Carbon Dioxide Level 27.0 MEQ/L Anion Gap 9 MEQ/L Blood Urea Nitrogen 25 MG/DL Creatinine 1.24 MG/DL Estimat Glomerular Filtration 61 ML/MIN Rate Random Glucose 153 MG/DL Calcium Level 8.6 MG/DL Total Bilirubin 0.9 MG/DL Aspartate Amino Transf 23 U/L (AST/SGOT) Alanine Aminotransferase 60 U/L (ALT/SGPT) Alkaline Phosphatase 55 U/L Total Creatine Kinase 177 U/L Troponin I LESS THAN 0.02 NG/ML Total Protein 7.0 GM/DL Albumin 4.2 GM/DL Urine Color YELLOW Urine Turbidity CLEAR Urine pH 7.0 Urine Specific [place] 1.022 Urine Protein TRACE mg/dL Urine Glucose (UA) NEG mg/dL Urine Ketones TRACE mg/dL Urine Occult Blood NEG Urine Nitrite NEG Urine Bilirubin NEG Urine Urobilinogen LESS THAN 2.0 MG/DL Urine Leukocyte Esterase NEG Urine RBC 1 /hpf Urine WBC LESS THAN 1 /hpf Urine Mucus FEW /lpf Microscopic Urinalysis Comment CATH-CULT NOT IND Urine Opiates Screen POS Urine Barbiturates Screen NEG Urine Amphetamines Screen NEG Urine Benzodiazepines Screen NEG Urine Cocaine Screen NEG Urine Cannabinoids Screen POS Triglycerides Level 159 MG/DL Cholesterol Level 124 MG/DL LDL Cholesterol 58 MG/DL HDL Cholesterol 33.9 MG/DL Cholesterol/HDL Ratio 3.65 RATIO Free Thyroxine 0.86 NG/DL Thyroid Stimulating Hormone 1.580 uIU/ML 3rd Gen Imaging Last Impressions Head Magnetic Resonance Angiography 05/17/16 0000 Signed Impressions: Service Date/Time: Tuesday, May 17, 2016 10:45 - CONCLUSION: No acute intracranial vascular abnormality is identified. Chencho Black MD Carotid Artery Ultrasound 05/17/16 0000 Signed Impressions: Service Date/Time: Tuesday, May 17, 2016 00:45 - CONCLUSION: Negative exam. No significant atherosclerotic disease. No sonographic or Doppler findings of a hemodynamically significant stenosis. Norris Bliss MD Brain MRI 05/17/16 0000 Signed Impressions: Service Date/Time: Tuesday, May 17, 2016 10:45 - CONCLUSION: Negative brain MRI. No abnormality is identified to explain the clinical symptoms and there are no findings to indicate recent ischemia. Chencho Black MD Head CT 05/16/162035 Signed Impressions: Service Date/Time: Monday, May 16, 2016 20:52 - CONCLUSION: Negative noncontrast head CT. Chencho Baez MD Chest X-Ray 05/16/162035 Signed Impressions: Service Date/Time: Monday, May 16, 2016 20:49 - CONCLUSION: No evidence of acute cardiopulmonary disease. Chencho Baez MD Objective Remarks General: NAD, AAOx3 Chest: CTA bilaterally Cardiac: Regular Abd: +BS, soft ND/NT Ext: No edema Neuro: Improved strength in the LUE and LLE today. A/P Problem List: (1) Memory loss or impairment Status: Acute Plan: - Pt admitted with new onset of confusion, memory loss, difficulty with word findings and left sided weakness that began on 05/16/16. Etiology unclear, pt has had some symptomatic improvement today with regards to his memory issues and left sided weakness. - Neurology evaluated and felt that this could be related to TGA vs. possible TIA vs. other - Pt had presented to [facility] on 05/16/16 and had a reportedly negative CT brain. - Pts brought him to [facility] on 05/16/16 for further workup. - Head CT was negative for acute changes - Carotid US - negative. - MRI/MRA are both negative. - EEG was negative for seizure activity. - Telemetry with some bradycardia during the night - 2D echo is poor quality but EF 55-60% - BP has been stable - He was recently started on Verapamil 2 days ago for cluster headaches. No complaints of headaches. - ASA - Pt is stable for discharge to home today. - He will need to followup with Neurology in 2 weeks - Pt will need to followup with his PCP, Dr. Patrick, in 1 week. (2) Confusion Status: Acute Plan: - See above. (3) Left-sided weakness Status: Acute Plan: - See above. (4) HTN (hypertension) Status: Chronic Plan: - Pt is on Lisinopril 20mg po daily - He was started on Verapamil 2 days ago for cluster headaches. - Stable on Lisinopril - He also takes HCTZ 50mg po daily for Mnire's disease. He can resume this but I instructed him to monitor his BP at home as this may decrease his BP as well. (5) Hypothyroidism Status: Chronic Plan: - Pt has been off his Levothyroxine for the last few days as he ran out of medications. - Resume Levothyroxine 200mcg daily - TSH 1.580 and free T4 0.86 (6) Psoriasis Status: Chronic Plan: - Pt reports hx of psoriasis and psoriatic arthritis. - He had been on Humira previously but stopped taking this around 4-5 months ago. (7) Chronic back pain Status: Chronic Plan: - Pt takes Methocarbamol 1500mg po HS and Advil 800mg at least twice daily - He recently started back on Oxycodone for his pain. - Pt also has been smoking marijuana at night to help with his chronic back pain. Assessment and Plan Patient examined. Assessment and plan formulated with Anay Gama PA-C. I agree with the above. amnestic sx's. no obvious tia or cva. eeg nml. take asa 81 daily. f/u neurology. d/c today. Anay Gama May 18, 2016 09:08 [place] Daily MD May 18, 2016 12:16
[2016-05-18] MEDS ORDERED: ASPI81CH CHEW (09:11)
--- NOTE | 2016-05-18 09:12 | HHI.DCPOC ---
Discharge Care Plan Diagnosis: (1) Memory loss or impairment (2) Confusion (3) Left-sided weakness (4) Chronic back pain (5) HTN (hypertension) (6) Psoriasis (7) Hypothyroidism Goals to Promote Your Health * To prevent worsening of your condition and complications * To maintain your health at the optimal level Directions to Meet Your Goals Take your medications as prescribed Follow your dietary instruction Follow activity as directed Keep your appointments as scheduled Take your immunizations and boosters as scheduled If your symptoms worsen call your PCP, if no PCP go to Urgent Care Center or Emergency Room Smoking is Dangerous to Your Health. Avoid second hand smoke Call the 24-hour hour crisis hotline for domestic abuse at Anay Gama May 18, 2016 09:12
--- NOTE | 2016-05-18 09:15 | HHI.FF ---
Face to Face Verification Diagnosis: (1) Left-sided weakness (2) Memory loss or impairment (3) Confusion (4) Chronic back pain (5) HTN (hypertension) (6) Psoriasis (7) Hypothyroidism Physical Therapy Order: Evaluate and Treat, Improve ambulation, Strength and gait training Speech Therapy Order: To Improve: Speech and communication skills, Cognitive skills Home Health Nursing Order: Medical education Signs/symptoms of disease process Nursing assessment with vital signs I have seen patient Emery Jackson on 05/18/16. My clinical findings support the need for the requested home health care services because: Deconditioned w/ increased weakness Impaired cognition/judgement I certify that my clinical findings support that this patient is homebound because: Impaired cognitive ability/safety Anay Gama May 18, 2016 09:15
[2016-05-18 12:04] VITALS: BP 109/69; PULSE 48; RESP 18; O2SAT 95
== END 2016-05-18 16:02 | disposition home or self-care (01) ==
LOC: NEPA 20:27 → NEDA 22:23 → NEPHCDU 05-17 02:57
PROVIDERS: ADMIT Hospitalist; ATTEND Hospitalist
DX: R53.1 Weakness (principal); R29.898 Other symptoms and signs involving the musculoskeletal system; R41.3 Other amnesia; I10 Essential (primary) hypertension; G44.009 Cluster headache syndrome, unspecified, not intractable; L40.50 Arthropathic psoriasis, unspecified; E78.5 Hyperlipidemia, unspecified; E11.9 Type 2 diabetes mellitus without complications; N40.0 Benign prostatic hyperplasia without lower urinary tract symptoms; E03.9 Hypothyroidism, unspecified; M19.90 Unspecified osteoarthritis, unspecified site; Z88.8 Allergy status to other drugs, medicaments and biological substances; F12.90 Cannabis use, unspecified, uncomplicated; M54.5 Low back pain; G89.29 Other chronic pain
CPT/HCPCS: 70450; 70544; 70551; 71010; 80053; 80061; 80307; 81001; 82550; 82948; 84439; 84443; 84484; 85025; 85610; 85730; 93005; 93306; 93880; 95819; 96125; 97110; 97116; 97163; 97167; 99285; G0378; G8987; G8988; G9168; G9169; G9170

== ENCOUNTER 2016-05-23 10:32 | Emergency (ER) | payer MEDICARE, OTHER ==
[~2016-05-23] VITALS: Ht 195.6 cm; Wt 120.0 kg
[~2016-05-23 10:32] MED LIST changes: +ACYC400T PO; -ALDA2525 PO; -ALDA50TA PO; +ASPI81CH CHEW; -BACT800T5 PO; +BENA25CA4; -CIAL5TAB PO; -CLIN150 PO; -HUMI20KI SQ; +HYDR25TA5 PO; +LEVO200T4 PO; -LISI-363 PO; +LISI-515 PO; +METH750T PO; +OXYC-395 PO; -ROBA750T3 PO; +SILD20TA11 PO; +SIMV80TA PO; -TAMS.4 PO; +TAMS0.4C4 PO; +TEST-55; -TEST200I13 IM; -ZOCO40TA PO
[2016-05-23 10:35] VITALS: BP 137/86; PULSE 65; RESP 16; TEMP 97.9; O2SAT 98
[2016-05-23 11:00] VITALS: BP 120/80; PULSE 76; RESP 18; O2SAT 97
[2016-05-23] MEDS ORDERED: SODIUM CHLORIDE 0.9% FLUSH 5 ML FLUSH IVF PRN (11:15)
[2016-05-23] MEDS ORDERED: SODIUM CHLORID 0.9% 500 ML INJ 500 ML IV ONE (11:15)
--- NOTE | 2016-05-23 11:16 | PD ---
HPI Chief Complaint: Respiratory Symptoms Time Seen by Provider: 10:44 Travel History International Travel<30 days: No Contact w/Intl Traveler<30days: No Traveled to known affect area: No History of Present Illness HPI The patient is a 55-year-old male who presents to the emergency department from his physician's office for evaluation of shortness of breath and possible pulmonary embolism. The patient was recently admitted to the hospital for TIA where he underwent MRI, ultrasound, and CT which were negative. The patient was discharged home, however, states his back was hurting from lying in the bed in the hospital, he had difficulty ambulating at home. According to the , the patient has been "bedridden" for the last week. The patient does complain of occasional shortness of breath, denies any pleuritic chest pain or anterior chest wall pain. Patient denies any nausea, vomiting, diaphoresis, or edema lower extremities. The patient denies any history of pulmonary was a DVT. The patient saw his physician earlier today who sent to the emergency department to rule out pulmonary embolism. The patient does note an occasional dry nonproductive cough PFSH Past Medical History Arthritis: Yes (PSORIATIC ARTHRITIS) Autoimmune Disease: Yes (MEINERES DISEASE) Cancer: No Cardiovascular Problems: Yes High Cholesterol: Yes Diminished Hearing: No Endocrine: No Genitourinary: Yes Hypertension: Yes Musculoskeletal: Yes Neurologic: Yes (neuropathy, trigeminal neuralgia? cluster headaches) Psychiatric: No Respiratory: No Thyroid Disease: Yes Triglycerides - High: Yes Past Surgical History Other Surgery: Yes (vasectomy) Social History Alcohol Use: No Tobacco Use: No Substance Use: No Allergies-Medications (Allergen,Severity, Reaction): Coded Allergies: Benzodiazepines (Verified Allergy, Severe, psycotic episodes, 05/16/16) Reported Meds & Prescriptions Reported Meds & Active Scripts Active Aspirin 81 Mg Chew 81 Mg CHEW DAILY Reported Oxycodone (Oxycodone HCl) 10 Mg Tab 10 Mg PO Q6H PRN Levothyroxine (Levothyroxine Sodium) 200 Mcg Tab 200 Mcg PO DAILY Benadryl Allergy (Diphenhydramine HCl) 25 Mg Cap Testosterone (Testosterone (Bulk)) 1 Pow Pow Tamsulosin (Tamsulosin HCl) 0.4 Mg Cap 0.4 Mg PO HS Methocarbamol 750 Mg Tab 1,500 Mg PO HS Sildenafil 20 Mg Tab 40 Mg PO DAILY PRN Acyclovir 400 Mg Tab 400 Mg PO BID PRN Lisinopril 20 Mg Tab 20 Mg PO DAILY Hydrochlorothiazide 25 Mg Tab 50 Mg PO DAILY Simvastatin 80 Mg Tab 80 Mg PO DAILY Review of Systems Except as stated in HPI: all other systems reviewed are Neg General / Constitutional: No: Fever Cardiovascular: No: Chest Pain or Discomfort, Tachycardia, Diaphoresis, Dyspnea on exertion Respiratory: Positive: Shortness of Breath Gastrointestinal: No: Nausea, Vomiting, Abdominal Pain Musculoskeletal: No: Edema Neurologic: No: Dizziness Physical Exam Narrative GENERAL: Awake, alert, nontoxic-appearing 55-year-old male who appears his stated age and is in no acute respiratory distress. SKIN: Warm and dry. HEAD: Atraumatic. Normocephalic. EYES: No injection or drainage. ENT: No nasal bleeding or discharge. Mucous membranes pink and moist. NECK: Trachea midline. No JVD. CARDIOVASCULAR: Regular rate and rhythm. No murmur appreciated. Heart rate in the 60s. RESPIRATORY: No accessory muscle use. Clear to auscultation. Breath sounds equal bilaterally. GASTROINTESTINAL: Abdomen soft, non-tender, nondistended. No rebound tenderness. MUSCULOSKELETAL: No obvious deformities. No clubbing. No cyanosis. No edema. NEUROLOGICAL: Awake and alert. No obvious cranial nerve deficits. Motor grossly within normal limits. Normal speech. PSYCHIATRIC: Appropriate mood and affect; insight and judgment normal. Data Data Last Documented VS Vital Signs Date Time Temp Pulse Resp B/P Pulse Ox O2 Delivery O2 Flow Rate FiO2 05/23/16 11:50 97 Nasal Cannula 2 05/23/16 11:00 76 18 120/80 05/23/16 10:35 97.9 Orders Complete Blood Count With Diff (05/23/16 11:07) Basic Metabolic Panel (Bmp) (05/23/16 11:07) B-Type Natriuretic Peptide (05/23/16 11:07) Act Partial Throm Time (Ptt) (05/23/16 11:07) Prothrombin Time / Inr (Pt) (05/23/16 11:07) Magnesium (Mg) (05/23/16 11:07) Ckmb (Isoenzyme) Profile (05/23/16 11:07) Troponin I (05/23/16 11:07) Iv Access Insert/Monitor (05/23/16 11:07) Electrocardiogram (05/23/16 11:07) Ecg Monitoring (05/23/16 11:07) Oximetry (05/23/16 11:07) Oxygen Administration (05/23/16 11:07) Chest, Single Ap (05/23/16 11:07) Ct Pulmonary Angiogram (05/23/16 11:07) Sodium Chloride 0.9% Flush (Ns Flush) (05/23/16 11:15) Sodium Chlorid 0.9% 500 Ml Inj (Ns 500 M (05/23/16 11:15) CKMB (05/23/16 11:40) CKMB% (05/23/16 11:40) Iohexol 350 Inj (Omnipaque 350 Inj) (05/23/16 13:16) Labs Laboratory Tests Test 05/23/16 11:40 White Blood Count 5.6 TH/MM3 Red Blood Count 5.32 MIL/MM3 Hemoglobin 16.3 GM/DL Hematocrit 45.6 % Mean Corpuscular Volume 85.7 FL Mean Corpuscular Hemoglobin 30.5 PG Mean Corpuscular Hemoglobin 35.6 % Concent Red Cell Distribution Width 13.4 % Platelet Count 207 TH/MM3 Mean Platelet Volume 8.1 FL Neutrophils (%) (Auto) 65.4 % Lymphocytes (%) (Auto) 25.6 % Monocytes (%) (Auto) 6.1 % Eosinophils (%) (Auto) 2.4 % Basophils (%) (Auto) 0.5 % Neutrophils # (Auto) 3.7 TH/MM3 Lymphocytes # (Auto) 1.4 TH/MM3 Monocytes # (Auto) 0.3 TH/MM3 Eosinophils # (Auto) 0.1 TH/MM3 Basophils # (Auto) 0.0 TH/MM3 CBC Comment DIFF FINAL Differential Comment Prothrombin Time 11.4 SEC Prothromb Time International 1.0 RATIO Ratio Activated Partial 26.1 SEC Thromboplast Time Sodium Level 139 MEQ/L Potassium Level 3.9 MEQ/L Chloride Level 104 MEQ/L Carbon Dioxide Level 27.5 MEQ/L Anion Gap 8 MEQ/L Blood Urea Nitrogen 18 MG/DL Creatinine 1.15 MG/DL Estimat Glomerular Filtration 66 ML/MIN Rate Random Glucose 108 MG/DL Calcium Level 8.9 MG/DL Magnesium Level 2.1 MG/DL Total Creatine Kinase 130 U/L Creatine Kinase MB 1.1 NG/ML Troponin I LESS THAN 0.02 NG/ML B-Type Natriuretic Peptide LESS THAN 2 PG/ML MDM Medical Decision Making Medical Screen Exam Complete: Yes Emergency Medical Condition: Yes Interpretation(s) EKG reveals normal sinus rhythm with a rate of 66. No ischemic changes or ectopy noted. Chest x-rays unremarkable Laboratory Tests Test 05/23/16 11:40 White Blood Count 5.6 TH/MM3 Red Blood Count 5.32 MIL/MM3 Hemoglobin 16.3 GM/DL Hematocrit 45.6 % Mean Corpuscular Volume 85.7 FL Mean Corpuscular Hemoglobin 30.5 PG Mean Corpuscular Hemoglobin 35.6 % Concent Red Cell Distribution Width 13.4 % Platelet Count 207 TH/MM3 Mean Platelet Volume 8.1 FL Neutrophils (%) (Auto) 65.4 % Lymphocytes (%) (Auto) 25.6 % Monocytes (%) (Auto) 6.1 % Eosinophils (%) (Auto) 2.4 % Basophils (%) (Auto) 0.5 % Neutrophils # (Auto) 3.7 TH/MM3 Lymphocytes # (Auto) 1.4 TH/MM3 Monocytes # (Auto) 0.3 TH/MM3 Eosinophils # (Auto) 0.1 TH/MM3 Basophils # (Auto) 0.0 TH/MM3 CBC Comment DIFF FINAL Differential Comment Prothrombin Time 11.4 SEC Prothromb Time International 1.0 RATIO Ratio Activated Partial 26.1 SEC Thromboplast Time Sodium Level 139 MEQ/L Potassium Level 3.9 MEQ/L Chloride Level 104 MEQ/L Carbon Dioxide Level 27.5 MEQ/L Anion Gap 8 MEQ/L Blood Urea Nitrogen 18 MG/DL Creatinine 1.15 MG/DL Estimat Glomerular Filtration 66 ML/MIN Rate Random Glucose 108 MG/DL Calcium Level 8.9 MG/DL Magnesium Level 2.1 MG/DL Total Creatine Kinase 130 U/L Creatine Kinase MB 1.1 NG/ML Troponin I LESS THAN 0.02 NG/ML B-Type Natriuretic Peptide LESS THAN 2 PG/ML CT pulmonary angiogram reveals no pulmonary embolus. 0.7 cm solitary pulmonary nodule in the right midlung. This can be followed with a noncontrast CT examination in 6 months. Differential Diagnosis Differential diagnosis includes atelectasis, pneumonia, congestive heart failure , pleural effusion, acute coronary syndrome, pulmonary embolism, deconditioning. Narrative Course IV was established, labs are drawn and sent, and the patient was placed on cardiac telemetry monitoring and continuous pulse oximetry monitoring. EKG was ordered and interpreted. Chest x-ray was ordered. I had a discussion with the patient regarding d-dimer versus CT pulmonary angiogram, the states she would prefer CT pulmonary angiogram, she is very concerned that he has a pulmonary embolism. I did discuss the risk and benefits of CT pulmonary angiogram versus d-dimer with the patient, after discussion, who accepts the risk of radiation, therefore, CT pulmonary angiogram was ordered. CT pulmonary angiogram is negative for pulmonary embolus. Patient does have a 0.7 cm solitary pulmonary nodule right midlung and will need a repeat CT, noncontrast, and 6 months. The patient will be provided a copy of his CT results and lab results at discharge. Diagnosis Primary Impression: Dyspnea Qualified Code: R06.00 - Dyspnea, unspecified type Patient Instructions: General Instructions Additional Instructions: Please provide a patient a copy of his labs and CT results at discharge. Follow -up with her primary physician. Return if symptoms worsen or progress. Med/Other Pt SpecificInfo: No Change to Meds Disposition: 01 DISCHARGE HOME Condition: Stable Christopher Whitney MD May 23, 2016 11:16
[2016-05-23 11:55] LABS: AUTOMATED NEUTROPHIL # 3.7 TH/MM3 (1.8-7.7); BASOPHIL % 0.5 % (0.0-2.0); EOSINOPHIL # 0.1 TH/MM3 (0-0.4); EOSINOPHIL % 2.4 % (0.0-4.0); HEMATOCRIT 45.6 % (39.0-51.0); HEMO FLAGS DIFF FINAL; LYMPH % 25.6 % (9.0-44.0); LYMPHOCYTE # 1.4 TH/MM3 (1.0-4.8); MEAN CELL VOLUME 85.7 FL (80.0-100.0); MEAN CORPUSCULAR HEMOGLOBIN 30.5 PG (27.0-34.0); MEAN CORPUSCULAR HGB CONC 35.6 % (32.0-36.0); MONO % 6.1 % (0.0-8.0); NEUT % 65.4 % (16.0-70.0); PLATELET COUNT 207 TH/MM3 (150-450); RED BLOOD COUNT 5.32 MIL/MM3 (4.50-5.90); RED CELL DISTRIBUTION WIDTH 13.4 % (11.6-17.2); WHITE BLOOD COUNT 5.6 TH/MM3 (4.0-11.0)
[2016-05-23 12:06] LABS: APTT (PATIENT) 26.1 SEC (24.3-30.1); PROTHROMBIN TIME - PATIENT 11.4 SEC (9.8-11.6)
--- NOTE | 2016-05-23 12:15 | RADRPT ---
EXAM DATE/TIME: 05/23/2016 11:51 [facility] COMPARISON: CHEST SINGLE AP, May 16, 2016, 20:49. INDICATIONS : Short of breath. Chest tightness. Recent transient ischemic attack. MEDICAL HISTORY : Hypertension. Meniere's disease. SURGICAL HISTORY : Fusion, cervical. Prostatectomy. ENCOUNTER: Subsequent ACUITY: 4 - 6 days PAIN SCORE: 1/10 LOCATION: Bilateral chest FINDINGS: A single view of the chest demonstrates the lungs to be symmetrically aerated without evidence of mas s, infiltrate or effusion. The cardiomediastinal contours are unremarkable. There is an anterior cer vical fusion plate present. CONCLUSION: No acute disease. Chencho Alexander MD on May 23, 2016 at 12:13 Board Certified Radiologist. This report was verified electronically.
[2016-05-23 12:17] LABS: CREATINE KINASE 130 U/L (39-308)
[2016-05-23 12:21] LABS: ANION GAP 8 MEQ/L (5-15); BICARBONATE 27.5 MEQ/L (21.0-32.0); BLOOD UREA NITROGEN 18 MG/DL (7-18); CHLORIDE 104 MEQ/L (98-107); GLOMERULAR FILTRATION RATE 66 ML/MIN (>89); MAGNESIUM 2.1 MG/DL (1.5-2.5); POTASSIUM 3.9 MEQ/L (3.5-5.1); SODIUM (NA) 139 MEQ/L (136-145)
[2016-05-23 12:30] VITALS: BP 120/80; PULSE 70; RESP 18; O2SAT 97
[2016-05-23 12:30] LABS: CKMB 1.1 NG/ML (0.5-3.6)
[2016-05-23] MEDS ORDERED: IOHEXOL 350 MG/ML 50 ML BTL (for RAD DIAG) IV ONE (13:16)
--- NOTE | 2016-05-23 13:33 | RADRPT ---
EXAM DATE/TIME: 05/23/2016 12:58 [facility] COMPARISON: CHEST SINGLE AP, May 23, 2016, 11:51. INDICATIONS : Increasing dyspnea for 1 week IV CONTRAST: 75 cc Omnipaque 350 (iohexol) IV RADIATION DOSE: 17.62 CTDIvol (mGy) MEDICAL HISTORY : Cardiovascular disease. Hypertension. SURGICAL HISTORY : cervical surgery ENCOUNTER: Initial ACUITY: 4 - 6 days PAIN SCALE: 0/10 LOCATION: chest TECHNIQUE: Volumetric scanning of the chest was performed using a pulmonary embolism protocol MIP images were re constructed. Using automated exposure control and adjustment of the mA and/or kV according to patien t size, radiation dose was kept as low as reasonably achievable to obtain optimal diagnostic quality images. FINDINGS: PULMONARY ARTERIES: No filling defects are seen in the pulmonary arteries through the segmental level. LUNGS: There is a 0.7 cm nodule in the anterior lateral right midlung. There is some dependent atelectasis s een at the posterior lung bases. PLEURAE: There is no pleural thickening or pleural effusion. MEDIASTINUM: There is good visualization of the great vessels of the middle mediastinum. No evidence of mediastin al or hilar adenopathy/mass. MUSCULOSKELETAL: Within normal limits for patient age. There is an anterior cervical fusions plate seen at the lower c ervical spine. MISCELLANEOUS: The visualized upper abdominal organs demonstrate no acute abnormality. CONCLUSION: 1. No pulmonary embolus. 2. 0.7 cm solitary pulmonary nodule in the right midlung. This can be followed with a noncontrast CT examination in 6 months. Chencho Alexander MD on May 23, 2016 at 13:29 Board Certified Radiologist. This report was verified electronically.
[2016-05-23 13:35] VITALS: BP 110/77; PULSE 68; RESP 16
--- NOTE | 2016-05-24 20:29 | EKG ---
Date Performed: 05/23/2016 Time Performed: 12:02:57 PTAGE: 55 years EKG: Sinus rhythm NORMAL ECG PREVIOUS TRACING : 05/16/2016 20.31 Compared to prior tracing no significant change DOCTOR: Carson Guerrero Interpretating Date/Time 05/24/2016 20:27:17
== END 2016-05-23 14:43 | disposition home or self-care (01) ==
LOC: NEPC 10:32
DX: R06.00 Dyspnea, unspecified (principal); R05 Cough; I10 Essential (primary) hypertension
CPT/HCPCS: 71010; 71275; 80048; 82550; 82552; 83735; 83880; 84484; 85025; 85610; 85730; 93005; 96360; 99285; J7040; Q9967